=== PATIENT | male | born 1965 | race Caucasian/White ===

== ENCOUNTER 2024-01-21 12:54 | Emergency (ER) | payer BC ==
[~2024-01-21] VITALS: Ht 175.3 cm; Wt 87.1 kg
[~2024-01-21 12:54] MED LIST: AMOXICILLIN500 MG PO; BENADRYL25 M1 PO; MELATONIN3 MG PO; NEURONTIN300 MG PO
[2024-01-21 13:16] VITALS: PULSE 72; RESP 16; TEMP 98.6; O2SAT 98
[2024-01-21] MEDS ORDERED: BENZONATATE100 MG PO (13:22)
[2024-01-21] MEDS ORDERED: LEVOTHYROXINE50 MCG PO (20:13)
== END 2024-01-21 13:30 | disposition home or self-care (01) ==
LOC: FSED 13:04
DX: R05.9 Cough, unspecified (principal); J06.9 Acute upper respiratory infection, unspecified; Z85.818 Personal history of malignant neoplasm of other sites of lip, oral cavity, and pharynx
CPT/HCPCS: 99283